=== PATIENT | male | born 1995 | race Asian ===

== ENCOUNTER 2019-04-02 00:57 | Emergency (ER) | payer BC ==
[~2019-04-02] VITALS: Ht 162.6 cm; Wt 56.0 kg
[2019-04-02] MEDS ORDERED: morphine 4 MG/ML inj SYRINge IV ONE ×3 (02:25→05:40)
[2019-04-02] MEDS ORDERED: NO HOME MEDS (02:26)
[2019-04-02] MEDS ORDERED: ondansetron/PF 4mg/2ml inj IV ONE (02:30)
[2019-04-02] MEDS ORDERED: HYDR-3965 PO (05:58)
--- NOTE | 2019-04-02 06:04 | NUR ---
PAIN MEDICATIONS GIVEN. MACHINIST WOOD AT BEDSIDE.
[2019-04-02] MEDS ORDERED: ondansetron 4mg rapidly disintigrating tab PO ONE (06:50)
[2019-04-02 07:11] VITALS: BP 125/77
== END 2019-04-02 07:19 | disposition home or self-care (01) ==
LOC: ER 01:00
DX: S42.491A Other displaced fracture of lower end of right humerus, initial encounter for closed fracture (principal); F10.99 Alcohol use, unspecified with unspecified alcohol-induced disorder; Z88.5 Allergy status to narcotic agent; Z79.899 Other long term (current) drug therapy; Y90.9 Presence of alcohol in blood, level not specified; X50.9XXA Other and unspecified overexertion or strenuous movements or postures, initial encounter; Y93.72 Activity, wrestling; Y92.89 Other specified places as the place of occurrence of the external cause; Y99.8 Other external cause status
CPT/HCPCS: 29105; 73060; 96374; 96375; 96376; 99284; J2270; J2405